=== PATIENT | male | born 1980 | race Hispanic/Latino ===

== ENCOUNTER → 2018-04-02 | Outpatient (CLI) | payer OTHER ==
[~2018-04-02] MED LIST: IOPAMIDOL 370 MG/ML 200 ML INFUS..BTL INJ ONE; SODIUM CHLORIDE 0.9% 50ML 50 ML ONE
--- NOTE | 2018-04-02 16:18 | Diagnostic Imaging Report ---
EXAM: CT Abdomen and Pelvis WITH contrast INDICATION: Pain COMPARISON: None. TECHNIQUE: Abdomen and Pelvis was scanned utilizing a multidetector helical scanner after administration of IV contrast. Coronal and sagittal reformations were obtained. IV CONTRAST: 100 mL Isovue-370 COMPLICATIONS: None RADIATION DOSE: Total DLP:840 mGy*cm Estimated effective dose: (DLP x 0.015 x size factor) mSv CTDIvol has been reviewed. It is below the limits set by the Radiation Protocol Committee (RPC). Appropriate CT dose reduction techniques were utilized. FINDINGS: Abdomen: Lung Bases: Atelectasis. Solid Organs: Moderate decreased attenuation of the liver consistent with steatosis. Otherwise, liver, adrenals, kidneys, spleen, and pancreas unremarkable. No hydronephrosis or ureteral calculi. Upper GI Tract: No small bowel obstructive changes. Vascularity: No aortic aneurysm. Lymph Nodes: No suspicious adenopathy. Scattered small mesenteric and aortocaval lymph nodes not enlarged by size criteria. Other: Small fat-containing umbilical hernia. Pelvis: Bladder: Decompressed, limiting evaluation. Other: Prostate and perirectal soft tissues are unremarkable. No pelvic free fluid or adenopathy. Colon: Appendix not inflamed. Short segment of sigmoid colon with mild wall thickening. Bones: No acute findings. IMPRESSION: 1. No definite acute findings. 2. Questionable mild wall thickening dissection of sigmoid colon. While findings may simply represent nondistention, minimal infectious/inflammatory colitis possible. Correlation with symptoms recommended. 3. Hepatic steatosis. Signed by: Dr. Brayden Melo MD on 04/02/2018 4:15 PM
== END ==
LOC: CT 13:41
PROVIDERS: ATTEND Family Medicine
DX: R10.9 Unspecified abdominal pain (principal)
CPT/HCPCS: 74177; Q9967